=== PATIENT | male | born 1995 | race Two or more races ===

== ENCOUNTER 2020-11-13 19:20 | Emergency (ER) | payer OTHER ==
[~2020-11-13] VITALS: Ht 172.7 cm; Wt 61.2 kg
[2020-11-13 19:34] VITALS: BP 131/71
[2020-11-13] MEDS ORDERED: IBUPROFEN 600 MG TAB PO ONE (20:15)
[2020-11-13] MEDS ORDERED: BACITRACIN OINT 500 UNITS/GM PKT TP ONE (20:15)
[2020-11-13] MEDS ORDERED: CEPH-588 PO (21:11)
[2020-11-13] MEDS ORDERED: NAPR-54 PO (21:11)
[2020-11-13 21:45] VITALS: BP 131/71
== END 2020-11-13 21:45 | disposition home or self-care (01) ==
LOC: MED 19:20
DX: S81.012A Laceration without foreign body, left knee, initial encounter (principal); X58.XXXA Exposure to other specified factors, initial encounter; Y93.89 Activity, other specified; Y92.89 Other specified places as the place of occurrence of the external cause; Y99.8 Other external cause status
CPT/HCPCS: 73562; 99283